=== PATIENT | male | born 1985 | race Caucasian/White ===

== ENCOUNTER 2017-08-04 08:13 | Outpatient (CLI) | payer MEDICARE, MEDICAID ==
[~2017-08-04 08:13] MED LIST: BAC10T PO; CARB400T5 PO; CEPH-357 PO; DIPH-915 PO; DOCU100C40 PO; KEP500T PO; LISI-600 PO; LORA-660 PO; NAPR-232 PO; OSC500T PO; RISP0.5T74 PO; SYN0.075T PO
[2017-08-04 16:53] LABS: BASOPHILS % (AUTO) 0.5 % (0-1); EOSINOPHILS # (AUTO) 0.5 X10'3 (0-0.9); EOSINOPHILS % (AUTO) 6.5 % (0-6); HEMATOCRIT 41.7 % (42.0-52.0); HEMOGLOBIN 14.4 g/dl (14.0-17.9); LYMPHOCYTES # (AUTO) 2.6 X10'3 (1.1-4.8); LYMPHOCYTES % (AUTO) 35.5 % (21-51); MEAN CORPUSCULAR HEMOGLOBIN 28.6 PG (27.0-31.0); MEAN CORPUSCULAR HGB CONC 34.4 % (33.0-36.5); MEAN CORPUSCULAR VOLUME 83.3 FL (78-98); MEAN PLATELET VOLUME 7.9 FL (7.4-10.4); MONOCYTES # (AUTO) 0.7 X10'3 (0-0.9); MONOCYTES % (AUTO) 9.2 % (2-12); NEUTROPHILS # (AUTO) 3.6 X10'3 (1.8-7.7); NEUTROPHILS % (AUTO) 48.3 % (42-75); PLATELET COUNT 314 X10'3 (140-440); RED BLOOD COUNT 5.01 X10'6 (4.70-6.10); RED CELL DISTRIBUTION WIDTH 14.7 % (11.5-14.5); WHITE BLOOD COUNT 7.4 X10'3 (4.5-11.0)
[2017-08-04 17:18] LABS: ALBUMIN 3.6 G/DL (3.4-5.0); ALBUMIN/GLOBULIN RATIO 0.9 (1.1-1.5); ANION GAP 10 (8-16); ASPARTATE AMINO TRANSFERASE 14 U/L (10-37); BILIRUBIN,TOTAL 0.3 MG/DL (0.1-1.0); BLOOD UREA NITROGEN 9 MG/DL (7-18); CALCIUM 8.9 MG/DL (8.5-10.1); CHLORIDE 102 MMOL/L (99-107); CREATININE 0.69 MG/DL (0.60-1.10); GLUCOSE 94 MG/DL (70-104); POTASSIUM 3.5 MMOL/L (3.5-5.1); SODIUM 138 MMOL/L (135-145); TOTAL CARBON DIOXIDE 25.7 MMOL/L (24-32); TOTAL PROTEIN 7.6 G/DL (6.4-8.2); eGFR > 90 ML/MIN
[2017-08-04 17:19] LABS: ALANINE AMINOTRANSFERASE 37 U/L (12-78); ALKALINE PHOSPHATASE 142 IU/L (46-116); CHOL/HDL RATIO 2.9 (0.00-4.99); CHOLESTEROL 186 MG/DL (0-200); HDL CHOLESTEROL 65 MG/DL (35-60); LDL CHOLESTEROL 94 MG/DL (50-100); TRIGLYCERIDES 114 MG/DL (20-135)
== END 2017-08-04 23:59 | disposition home or self-care (01) ==
LOC: LAB 08:13
PROVIDERS: ATTEND Family Medicine
DX: I10 Essential (primary) hypertension (principal); E78.5 Hyperlipidemia, unspecified; R56.9 Unspecified convulsions; E03.8 Other specified hypothyroidism
CPT/HCPCS: 36415; 80053; 80061; 84443; 85025

== ENCOUNTER 2017-08-24 03:05 | Emergency (ER) | payer MEDICARE, MEDICAID ==
[~2017-08-24] VITALS: Ht 172.7 cm; Wt 140.9 kg
[2017-08-24] MEDS ORDERED: normal saline 1000ML IV soln IVB ONE (03:30)
[2017-08-24 04:27] LABS: BASOPHILS % (AUTO) 0.2 % (0-1); EOSINOPHILS % (AUTO) 0.3 % (0-6); HEMATOCRIT 42.6 % (42.0-52.0); HEMOGLOBIN 14.6 g/dl (14.0-17.9); LYMPHOCYTES # (AUTO) 0.8 X10'3 (1.1-4.8); LYMPHOCYTES % (AUTO) 6.2 % (21-51); MEAN CORPUSCULAR HEMOGLOBIN 28.8 PG (27.0-31.0); MEAN CORPUSCULAR HGB CONC 34.2 % (33.0-36.5); MEAN CORPUSCULAR VOLUME 84.3 FL (78-98); MEAN PLATELET VOLUME 7.9 FL (7.4-10.4); MONOCYTES # (AUTO) 0.9 X10'3 (0-0.9); MONOCYTES % (AUTO) 7.3 % (2-12); NEUTROPHILS # (AUTO) 11.1 X10'3 (1.8-7.7); PLATELET COUNT 252 X10'3 (140-440); RED BLOOD COUNT 5.05 X10'6 (4.70-6.10); RED CELL DISTRIBUTION WIDTH 14.8 % (11.5-14.5); WHITE BLOOD COUNT 12.9 X10'3 (4.5-11.0)
[2017-08-24 04:32] LABS: LACTIC SEPSIS 1.2 MMOL/L (0.4-2.0)
[2017-08-24 04:36] LABS: D-DIMER 5.36 MG/L FEU (0-0.50); INR 1.1 INR; PARTIAL THROMBOPLASTIN TIME 32 SECONDS (22-32); PROTHROMBIN TIME 11.3 SECONDS (9.0-12.0)
[2017-08-24 05:18] LABS: ALANINE AMINOTRANSFERASE 39 U/L (12-78); ALBUMIN/GLOBULIN RATIO 0.7 (1.1-1.5); ALKALINE PHOSPHATASE 136 IU/L (46-116); ANION GAP 10 (8-16); ASPARTATE AMINO TRANSFERASE 22 U/L (10-37); BILIRUBIN,TOTAL 0.6 MG/DL (0.1-1.0); BLOOD UREA NITROGEN 7 MG/DL (7-18); BUN/CREATININE RATIO 8.3 (5.4-32.0); CALCIUM 8.4 MG/DL (8.5-10.1); CHLORIDE 98 MMOL/L (99-107); CREATININE 0.84 MG/DL (0.60-1.10); GLUCOSE 122 MG/DL (70-104); POTASSIUM 3.8 MMOL/L (3.5-5.1); SODIUM 131 MMOL/L (135-145); TOTAL CARBON DIOXIDE 23.4 MMOL/L (24-32); TOTAL PROTEIN 7.5 G/DL (6.4-8.2); eGFR > 90 ML/MIN
[2017-08-24 05:23] LABS: CLARITY,URINE CLEAR (Clear); COLOR,URINE YELLOW (Yellow); GLUCOSE, URINE NEGATIVE (Neg); KETONES,URINE NEGATIVE (Neg); LEUKOCYTE ESTERASE ,URINE NEGATIVE (Neg); NITRITES, URINE NEGATIVE (Neg); OCCULT BLOOD,URINE NEGATIVE (Neg); PROTEIN,URINE 100 mg/dl (Neg)
[2017-08-24 05:26] LABS: UA COLLECTION TYPE CLN CATCH MIDSTREAM
[2017-08-24 05:28] LABS: BACTERIA,URINE NONE SEEN /HPF (Neg); MUCUS STRANDS NONE SEEN /LPF (Neg); RBC,URINE NONE SEEN /HPF (0-2); SQUAMOUS EPITHELIAL CELL,UR NONE SEEN /LPF (FEW); WBC,URINE NONE SEEN /HPF (0-4)
[2017-08-24 05:34] LABS: CREATINE KINASE 33 U/L (39-308); ETHANOL < 0.010 GM/DL (0.0-0.010); PHOSPHORUS 1.4 MG/DL (2.3-4.5)
[2017-08-24 05:37] LABS: ACETAMINOPHEN < 2.0 UG/ML (10-30)
[2017-08-24 05:39] LABS: URINE AMPHETAMINE SCREEN NEGATIVE (Neg); URINE BARBITUATE SCREEN NEGATIVE (Neg); URINE BENZODIAZEPINES SCREEN NEGATIVE (Neg); URINE CANNABINOID SCREEN NEGATIVE (Neg); URINE COCAINE SCREEN NEGATIVE (Neg); URINE METHADONE SCREEN NEGATIVE (Neg); URINE OPIATE SCREEN NEGATIVE (Neg); URINE PHENCYCLIDINE SCREEN NEGATIVE (Neg)
[2017-08-24] MEDS ORDERED: MECL12.584 PO (05:50)
[2017-08-24 05:57] VITALS: BP 129/80
== END 2017-08-24 07:48 | disposition home or self-care (01) ==
LOC: ER 03:05
DX: R42 Dizziness and giddiness (principal); Z56.0 Unemployment, unspecified; Z79.899 Other long term (current) drug therapy
CPT/HCPCS: 36415; 70450; 71045; 80053; 80305; 80320; 80329; 81001; 82140; 82550; 82948; 83605; 83735; 83874; 84100; 84443; 84484; 85025; 85379; 85610; 85730; 87040; 93005; 96360; 99285; J7030

== ENCOUNTER 2022-03-12 06:57 | Emergency (ER) | payer MEDICARE, MEDICAID ==
[~2022-03-12] VITALS: Ht 172.7 cm; Wt 136.9 kg
[~2022-03-12 06:57] MED LIST changes: -LISI-600 PO; +LISI20TA28 PO; +LORA-657 PO; -LORA-660 PO; +MECL-226 PO
[2022-03-12 07:04] VITALS: BP 191/108
[2022-03-12] MEDS ORDERED: HYDR-3965 PO (11:53)
[2022-03-12] MEDS ORDERED: CYCL-1 PO (11:53)
--- NOTE | 2022-03-12 12:21 | NUR ---
PAGED KRISTAN DIXON FOR PLACEMENT OF BACK BRACE
== END 2022-03-12 12:50 | disposition home or self-care (01) ==
LOC: ER 06:58
DX: S32.030A Wedge compression fracture of third lumbar vertebra, initial encounter for closed fracture (principal); M54.50 Low back pain, unspecified; Z86.69 Personal history of other diseases of the nervous system and sense organs; Z98.890 Other specified postprocedural states; Z56.0 Unemployment, unspecified; Z79.2 Long term (current) use of antibiotics; Z79.899 Other long term (current) drug therapy; W19.XXXA Unspecified fall, initial encounter; Y93.89 Activity, other specified; Y92.89 Other specified places as the place of occurrence of the external cause; Y99.8 Other external cause status
CPT/HCPCS: 72100; 72131; 99284

== ENCOUNTER 2022-05-19 08:49 | Day surgery (SDC) | payer MEDICARE, MEDICAID ==
[~2022-05-19] VITALS: Ht 172.7 cm; Wt 134.1 kg
[~2022-05-19 08:49] MED LIST changes: +CYCL-1 PO
[2022-05-19] MEDS ORDERED: normal saline 1000ml 1,000 ML IV PRN (09:15)
[2022-05-19] MEDS ORDERED: ceFAZolin inj. 2,000 MG in normal saline soln 50 ML IV ONE (09:15)
[2022-05-19] MEDS ORDERED: ceFAZolin inj. 2,000 MG in dextrose 5%-water 100 ML IV ONE (09:26)
[2022-05-19 09:53] LABS: BASOPHILS # (AUTO) 0.1 X10'3 (0-0.2); EOSINOPHILS # (AUTO) 0.1 X10'3 (0-0.9); EOSINOPHILS % (AUTO) 1.4 % (0-6); HEMATOCRIT 42.5 % (42.0-52.0); HEMOGLOBIN 14.7 g/dl (14.0-17.9); LYMPHOCYTES # (AUTO) 1.4 X10'3 (1.1-4.8); LYMPHOCYTES % (AUTO) 23.7 % (21-51); MEAN CORPUSCULAR HEMOGLOBIN 30.1 PG (27.0-31.0); MEAN CORPUSCULAR HGB CONC 34.5 g/dL (33.0-36.5); MEAN CORPUSCULAR VOLUME 87.3 FL (78-98); MEAN PLATELET VOLUME 7.6 FL (7.4-10.4); MONOCYTES # (AUTO) 0.5 X10'3 (0-0.9); MONOCYTES % (AUTO) 8.4 % (2-12); NEUTROPHILS % (AUTO) 65.5 % (42-75); PLATELET COUNT 299 X10'3 (140-440); RED BLOOD COUNT 4.87 X10'6 (4.70-6.10); RED CELL DISTRIBUTION WIDTH 14.2 % (11.5-14.5); WHITE BLOOD COUNT 6.1 X10'3 (4.5-11.0)
[2022-05-19] MEDS ORDERED: SIMV-42 PO (09:59)
[2022-05-19] MEDS ORDERED: LOSA50TA64 PO (09:59)
[2022-05-19] MEDS ORDERED: RISP2TAB85 PO (09:59)
[2022-05-19] MEDS ORDERED: LAMO25TA5 PO (10:02)
[2022-05-19 10:10] LABS: ALBUMIN 3.7 G/DL (3.4-5.0); BLOOD UREA NITROGEN 4 MG/DL (7-18); BUN/CREATININE RATIO 6.3 (5.4-32.0); CALCIUM 9.2 MG/DL (8.5-10.1); CREATININE 0.63 MG/DL (0.60-1.10); GLUCOSE 98 MG/DL (70-104); TOTAL CARBON DIOXIDE 29.2 MMOL/L (24-32); eGFR > 90 ML/MIN
[2022-05-19 10:11] LABS: ANION GAP 6 (8-16); CHLORIDE 101 MMOL/L (99-107); SODIUM 136 MMOL/L (135-145)
[2022-05-19] MEDS ORDERED: diphenhydrAMINE 50 mg/ml inj ONE (11:23)
[2022-05-19] MEDS ORDERED: midazolam 1 mg/ML 2ml injection ONE ×3 (11:23→12:13)
[2022-05-19] MEDS ORDERED: LIDOcaine 1% 30ml preserv. free vial ONE (11:23)
[2022-05-19] MEDS ORDERED: fentaNYL/PF 50MCG/1 ML 2ML syringe ONE ×2 (11:23→12:13)
[2022-05-19] MEDS ORDERED: iohexol 300mg/ml 100ml inj. ONE (11:43)
[2022-05-19] MEDS ORDERED: hydrALAZINE 20mg/ml inj. IV ONE (12:26)
[2022-05-19 12:45] VITALS: BP 107/57
[2022-05-19] MEDS ORDERED: HYDROcodone/acetaminophen 5mg/325mg tablet PO PRN (12:55)
[2022-05-19 13:00] VITALS: BP 128/75
[2022-05-19 13:15] VITALS: BP 141/95
[2022-05-19 13:30] VITALS: BP 124/58
[2022-05-19 14:00] VITALS: BP 120/55
[2022-05-19 14:30] VITALS: BP 140/71
== END 2022-05-19 16:05 | disposition home or self-care (01) ==
LOC: SSTAY O 08:49
PROVIDERS: ATTEND Radiology Vascular & Interventional Radiology
DX: M80.08XA Age-related osteoporosis with current pathological fracture, vertebra(e), initial encounter for fracture (principal); M85.88 Other specified disorders of bone density and structure, other site; M54.50 Low back pain, unspecified; G80.9 Cerebral palsy, unspecified; I10 Essential (primary) hypertension; M41.9 Scoliosis, unspecified; Z98.890 Other specified postprocedural states; Z79.899 Other long term (current) drug therapy
CPT/HCPCS: 22514; 36415; 80048; 85025; 85610; 99152; 99153; C1713; J0360; J1200; J2250; J3010; J3490; J7030; Q9967

== ENCOUNTER 2024-08-09 07:39 | Outpatient (CLI) | payer MEDICARE, MEDICAID ==
[~2024-08-09 07:39] MED LIST changes: -BAC10T PO; -CEPH-357 PO; -CYCL-1 PO; -DIPH-915 PO; -KEP500T PO; +LAMO25TA5 PO; -LISI20TA28 PO; +LOSA50TA64 PO; -MECL-226 PO; +RISP-32 PO; -RISP0.5T74 PO; +SIMV-42 PO
[2024-08-09 15:17] LABS: ALANINE AMINOTRANSFERASE 46 U/L (12-78); ALBUMIN 3.4 G/DL (3.4-5.0); ALKALINE PHOSPHATASE 147 IU/L (46-116); ANION GAP 9 (8-16); ASPARTATE AMINO TRANSFERASE 18 U/L (10-37); BILIRUBIN,TOTAL 0.5 MG/DL (0.1-1.0); BLOOD UREA NITROGEN 7 MG/DL (7-18); BUN/CREATININE RATIO 11.3 (10.0-20.0); CALCIUM 8.7 MG/DL (8.5-10.1); CHLORIDE 108 MMOL/L (99-107); CREATININE 0.62 MG/DL (0.60-1.10); GLUCOSE 91 MG/DL (70-104); POTASSIUM 3.9 MMOL/L (3.5-5.1); SODIUM 140 MMOL/L (135-145); TOTAL CARBON DIOXIDE 23.5 MMOL/L (24-32); TOTAL PROTEIN 6.8 G/DL (6.4-8.2); eGFR > 90 ML/MIN
== END 2024-08-09 23:59 | disposition home or self-care (01) ==
LOC: LAB 07:39
PROVIDERS: ATTEND Family Medicine
DX: I10 Essential (primary) hypertension (principal)
CPT/HCPCS: 36415; 80053